=== PATIENT | female | born 2000 | race Caucasian/White ===

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

== ENCOUNTER 2019-02-28 11:40 | Emergency (ER) | payer OTHER ==
[~2019-02-28] VITALS: Ht 160 cm; Wt 90.7 kg
[2019-02-28 12:28] LABS: BILIRUBIN NEGATIVE (NEGATIVE); BLOOD 2+ (NEGATIVE); CLARITY SL CLOUDY (CLEAR); COLOR YELLOW (YELLOW); GLUCOSE NEGATIVE (NEGATIVE); KETONE NEGATIVE (NEGATIVE); LEUKO ESTERASE NEGATIVE (NEGATIVE); NITRITE NEGATIVE (NEGATIVE); SPECIFIC GRAVITY 1.015 (1.005-1.030); UROBILINOGEN 0.2 E.U./dl (0.2-1.0)
[2019-02-28 12:53] LABS: BACTERIA 2+; EPITHELIAL CELLS 15-20
[2019-06-03] MEDS ORDERED: VISTARIL25 MG PO (13:20)
[2019-06-03] MEDS ORDERED: PROTONIX40 MG PO (13:20)
[2019-06-03] MEDS ORDERED: CARAFATE1 G1 PO (13:20)
[2019-06-03] MEDS ORDERED: LEVAQUIN750 M1 PO (13:20)
[2019-06-03] MEDS ORDERED: FLAGYL500 MG PO (13:20)
[2019-06-03] MEDS ORDERED: ZOFRAN4 MG PO (13:20)
== END 2019-02-28 13:23 | disposition home or self-care (01) ==
LOC: ED 11:40
PROVIDERS: Emergency Medicine
DX: J06.9 Acute upper respiratory infection, unspecified (principal); R11.0 Nausea; R30.9 Painful micturition, unspecified; E66.9 Obesity, unspecified; F17.200 Nicotine dependence, unspecified, uncomplicated

== ENCOUNTER 2019-07-03 08:51 | Emergency (ER) | payer OTHER ==
[~2019-07-03] VITALS: Ht 162.5 cm; Wt 82.6 kg
[~2019-07-03 08:51] MED LIST changes: +CARAFATE1 G1 PO; +FLAGYL500 MG PO; +LEVAQUIN750 M1 PO; +VISTARIL25 MG PO
[2019-07-03 09:26] LABS: BASO # 0.1 10*3/uL (0.0-0.1); BASO % 0.3 % (0.0-1.0); EOS # 0.1 10*3/uL (0.0-0.4); EOS % 0.6 % (1.0-4.0); HEMATOCRIT 43.1 % (37.0-47.0); HEMOGLOBIN 14.6 g/dl (12.0-16.0); LYMPH # 1.9 10*3/uL (1.3-4.4); LYMPH % 11.4 % (27.0-41.0); MEAN CELL VOLUME 90.9 fl (81.0-99.0); MEAN CORPUSCULAR HGB 30.8 pg (27.0-31.0); MEAN CORPUSCULAR HGB CONC 33.9 g/dl (33.0-37.0); MEAN PLATELET VOLUME 11.6 fl (9.6-12.3); MONO # 0.6 10*3/uL (0.1-1.0); MONO % 3.5 % (3.0-9.0); NEUT # 13.8 10*3/uL (2.3-7.9); NEUT % 83.9 % (47.0-73.0); PLATELET COUNT AUTOMATED 299 10*3/uL (130-400); RED BLOOD COUNT 4.74 10*6/uL (4.10-5.10); RED CELL DISTRI WIDTH 12.1 % (0-14.5); WHITE BLOOD COUNT 16.5 10*3/uL (4.8-10.8)
[2019-07-03 09:32] LABS: BILIRUBIN NEGATIVE (NEGATIVE); BLOOD NEGATIVE (NEGATIVE); CLARITY CLOUDY (CLEAR); COLOR YELLOW (YELLOW); GLUCOSE NEGATIVE (NEGATIVE); KETONE 2+ (NEGATIVE); LEUKO ESTERASE TRACE (NEGATIVE); NITRITE NEGATIVE (NEGATIVE); PH 6.5 (5.0-9.0); UROBILINOGEN 0.2 E.U./dl (0.2-1.0)
[2019-07-03 09:40] LABS: ALBUMIN 3.9 gm/dl (3.1-4.5); ALKALINE PHOSPHATASE 60 U/L (45-117); BUN 14 mg/dl (7-24); CHLORIDE 110 mmol/L (98-107); CREATININE 0.69 mg/dL (0.55-1.02); LIPASE 109 U/L (73-393); POTASSIUM 3.5 mmol/L (3.5-5.1); SGOT/AST 7 IU/L (3-35); SGPT/ALT 18 U/L (12-78); SODIUM 140 mmol/L (136-145); TOTAL PROTEIN 7.3 gm/dL (6.4-8.2)
[2019-07-03 09:50] LABS: BACTERIA 2+; EPITHELIAL CELLS TNTC
[2019-07-03 10:03] LABS: URINE AMPHETAMINES < 1000 (1000ng/ml); URINE BARBITURATES < 200 (200ng/ml); URINE BENZODIAZEPINES < 200 (200ng/ml); URINE CANNABINOIDS (THC) > 50 (50ng/ml); URINE COCAINE < 300 (300ng/ml); URINE METHADONE < 300 (300ng/ml); URINE OPIATES < 300 (300ng/ml)
[2019-07-03 10:07] LABS: URINE PHENCYCLIDINE < 25 (25ng/ml)
[2019-07-03] MEDS ORDERED: ZOFRAN4 MG PO (11:01)
== END 2019-07-03 11:08 | disposition home or self-care (01) ==
LOC: ED 08:51
PROVIDERS: Emergency Medicine
DX: F12.10 Cannabis abuse, uncomplicated (principal); G43.A0 Cyclical vomiting, in migraine, not intractable; R10.84 Generalized abdominal pain; F17.200 Nicotine dependence, unspecified, uncomplicated; F17.210 Nicotine dependence, cigarettes, uncomplicated; Z79.899 Other long term (current) drug therapy

== ENCOUNTER → 2019-07-05 | Outpatient (CLI) | payer OTHER | END | disposition home or self-care (01) | LOC: NM 07:00 | DX: R10.11 Right upper quadrant pain (principal); R10.13 Epigastric pain; R11.0 Nausea ==

== ENCOUNTER 2019-07-11 08:37 | Emergency (ER) | payer OTHER ==
[~2019-07-11] VITALS: Ht 162.5 cm; Wt 83.9 kg
[2019-07-11 09:54] LABS: BILIRUBIN NEGATIVE (NEGATIVE); BLOOD NEGATIVE (NEGATIVE); CLARITY SL CLOUDY (CLEAR); COLOR YELLOW (YELLOW); GLUCOSE NEGATIVE (NEGATIVE); KETONE 1+ (NEGATIVE); LEUKO ESTERASE TRACE (NEGATIVE); NITRITE NEGATIVE (NEGATIVE); UROBILINOGEN 0.2 E.U./dl (0.2-1.0)
[2019-07-11 10:01] LABS: URINE AMPHETAMINES < 1000 (1000ng/ml); URINE BARBITURATES < 200 (200ng/ml); URINE BENZODIAZEPINES < 200 (200ng/ml); URINE CANNABINOIDS (THC) > 50 (50ng/ml); URINE COCAINE < 300 (300ng/ml); URINE METHADONE < 300 (300ng/ml); URINE OPIATES < 300 (300ng/ml)
[2019-07-11 10:10] LABS: BACTERIA 3+; EPITHELIAL CELLS 16-20
[2019-07-11 10:14] LABS: URINE PHENCYCLIDINE < 25 (25ng/ml)
[2019-07-11] MEDS ORDERED: ZOFRAN4 MG PO (11:56)
== END 2019-07-11 12:05 | disposition home or self-care (01) ==
LOC: ED 08:37
PROVIDERS: Emergency Medicine
DX: K29.70 Gastritis, unspecified, without bleeding (principal); R42 Dizziness and giddiness; R06.02 Shortness of breath; R61 Generalized hyperhidrosis; R05 Cough; F12.90 Cannabis use, unspecified, uncomplicated; F17.210 Nicotine dependence, cigarettes, uncomplicated

== ENCOUNTER 2020-03-04 10:05 | Inpatient (IN) | payer OTHER ==
[~2020-03-04] VITALS: Ht 152.4 cm; Wt 85.3 kg
[2020-03-04 10:25] VITALS: BP 115/68
[2020-03-04 11:06] LABS: BASO # 0.1 10*3/uL (0.0-0.1); BASO % 0.4 % (0.0-1.0); EOS % 0.2 % (1.0-4.0); HEMATOCRIT 42.5 % (37.0-47.0); LYMPH # 2.3 10*3/uL (1.3-4.4); LYMPH % 12.1 % (27.0-41.0); MEAN CELL VOLUME 90.4 fl (81.0-99.0); MEAN CORPUSCULAR HGB 31.7 pg (27.0-31.0); MEAN CORPUSCULAR HGB CONC 35.1 g/dl (33.0-37.0); MEAN PLATELET VOLUME 11.2 fl (9.6-12.3); MONO # 0.8 10*3/uL (0.1-1.0); MONO % 4.4 % (3.0-9.0); NEUT # 15.8 10*3/uL (2.3-7.9); NEUT % 82.4 % (47.0-73.0); PLATELET COUNT AUTOMATED 346 10*3/uL (130-400); RED CELL DISTRI WIDTH 11.9 % (0-14.5); WHITE BLOOD COUNT 19.1 10*3/uL (4.8-10.8)
[2020-03-04 11:22] LABS: ALBUMIN 4.2 gm/dl (3.1-4.5); ALKALINE PHOSPHATASE 64 U/L (45-117); BUN 8 mg/dl (7-24); CHLORIDE 112 mmol/L (98-107); CREATININE 0.73 mg/dL (0.55-1.02); LIPASE 73 U/L (73-393); POTASSIUM 3.7 mmol/L (3.5-5.1); SGOT/AST 13 IU/L (3-35); SGPT/ALT 17 U/L (12-78); SODIUM 140 mmol/L (136-145); TOTAL PROTEIN 7.4 gm/dL (6.4-8.2)
[2020-03-04 11:24] VITALS: BP 119/63
[2020-03-04 11:24] LABS: BETA-HCG, QUANT < 1.0 mIU/mL (1-3)
[2020-03-04 11:50] VITALS: BP 112/67
--- NOTE | 2020-03-04 11:52 | NUR ---
SLIGHT IMPROVEMENT IN NAUSEA AND DRY HEAVING AFTER PHENERGAN.
[2020-03-04 13:17] LABS: BILIRUBIN NEGATIVE (NEGATIVE); BLOOD NEGATIVE (NEGATIVE); CLARITY CLEAR (CLEAR); COLOR YELLOW (YELLOW); GLUCOSE NEGATIVE (NEGATIVE); KETONE 3+ (NEGATIVE); LEUKO ESTERASE NEGATIVE (NEGATIVE); NITRITE NEGATIVE (NEGATIVE); PH 8.5 (5.0-9.0); SPECIFIC GRAVITY 1.005 (1.005-1.030); UROBILINOGEN 0.2 E.U./dl (0.2-1.0)
[2020-03-04 13:19] LABS: BACTERIA 2+
--- NOTE | 2020-03-04 14:16 | NUR ---
PATIENT AMBUALTED WELL TO RESTROOM AT THIS TIME.
--- NOTE | 2020-03-04 15:00 | NUR ---
Time: 1500 A 19 year old FEMALE admitted to under services of FABIO JUAREZ DO. Pt. arrived via wheel chair from ER. Chief complaint: NAUSEA AND VOMITING. INITIAL ASSESSMENT COMPLETE. C/O OF NAUSEA, VOMITING, SLIGHT ABDOMINAL PAIN, AND STATED SHE WANTED TO HAVE SOMETHING TO DRINK SOMETHING. WHILE IN ROOM, NOTIFIED HER THAT SHE WAS ON A CLEAR LIQUID DIET. AIDE BROUGHT PT IN A BIG GLASS OF WATER AND PATIENT DRANK ALL THE WATER IN THE CUP AT ONCE. PT BEGAN STATING SHE WAS FEELING VERY NAUSEOUS. NO OTHER COMPLAINTS AT THIS TIME. ROOM ORIENTATION WAS GIVEN AT THIS TIME WELL. HOME MED REQ WAS COMPLETED. SUREKHA ESCOBEDO
[2020-03-04] MEDS ORDERED: CARAFATE1 G1 PO (15:11)
[2020-03-04 15:17] VITALS: BP 132/58
[2020-03-04 16:00] VITALS: BP 126/63
--- NOTE | 2020-03-04 16:57 | NUR ---
PRN ZOFRAN GIVEN TO PT FOR NAUSEA. PT THEN ASKED FOR A PITCHER OF WATER. EDUCATED THE PATIENT ON THE IMPORTANCE OF DRINKING FLUIDS SLOWLY TO HELP WITH NAUSEA AND TO NOT DRINK THEM TOO QUICKLY. WILL REASSESS EFFECTIVENESS OF MEDICATION.
--- NOTE | 2020-03-04 17:17 | NUR ---
PRN ZOFRAN WAS EFFECTIVE. PT IS CURRENTLY SLEEPING WITH NO SIGNS OF DISTRESS.
--- NOTE | 2020-03-04 19:30 | NUR ---
IN TO SEE PT AT THIS TIME. PT APPEARS TO BE ANXIOUS BUT DENIES ANY NEED FOR MEDICATION AT THIS TIME. PT ALSO DENIES ANY N/V. NO OTHER C/O VOICED. RESPS ARE EASY AND NONLABORED. BED IS LOW, CALL LIGHT WITHIN REACH. WILL CONTINUE TO MONITOR.
[2020-03-04 20:00] VITALS: BP 109/48
--- NOTE | 2020-03-04 20:09 | NUR ---
PT MEDICATED WITH PRN VISTARIL AND TYLENOL AT THIS TIME FOR C/O ANXIETY AND HEADACHE. WILL MONITOR FOR EFFECTIVENESS.
--- NOTE | 2020-03-04 20:54 | NUR ---
PT RESTING COMFORTABLY AT THIS TIME. NO S/S OF ANXIETY NOTED. PT ALSO STATES THAT HER HEADACHE HAS SUBSIDED. PRN TYLENOL AND VISTARIL EFFECTIVE.
--- NOTE | 2020-03-04 23:45 | NUR ---
PT MEDICATED WITH PRN ZOFRAN FOR C/O NAUSEA. WILL MONITOR FOR EFFECTIVENESS.
[2020-03-05] VITALS: BP 120/63
--- NOTE | 2020-03-05 00:32 | NUR ---
PT ASLEEP IN BED AT THIS TIME. NO S/S OF DISTRESS NOTED. PRN ZOFRAN EFFECTIVE
--- NOTE | 2020-03-05 05:43 | NUR ---
PT ADMINISTERED PRN ZOFRAN FOR C/O NAUSEA AND VOMITTING X1. WILL MONITOR FOR EFFECTIVENESS.
--- NOTE | 2020-03-05 06:25 | NUR ---
PT ASLEEP IN BED AT THIS TIME. NO S/S OF DISTRESS NOTED. PRN ZOFRAN EFFECTIVE.
--- NOTE | 2020-03-05 07:28 | NUR ---
PT MEDICATED WITH PRN VISTARIL. WILL MONITOR FOR EFFECTIVENESS.
[2020-03-05 07:49] LABS: BUN 9 mg/dl (7-24); CHLORIDE 111 mmol/L (98-107); CREATININE 0.61 mg/dL (0.55-1.02); POTASSIUM 3.4 mmol/L (3.5-5.1); SODIUM 140 mmol/L (136-145)
[2020-03-05 07:53] LABS: BASO % 0.3 % (0.0-1.0); HEMATOCRIT 38.3 % (37.0-47.0); LYMPH # 1.9 10*3/uL (1.3-4.4); LYMPH % 14.1 % (27.0-41.0); MEAN CELL VOLUME 92.5 fl (81.0-99.0); MEAN CORPUSCULAR HGB 31.2 pg (27.0-31.0); MEAN CORPUSCULAR HGB CONC 33.7 g/dl (33.0-37.0); MEAN PLATELET VOLUME 12.1 fl (9.6-12.3); MONO % 7.6 % (3.0-9.0); NEUT # 10.7 10*3/uL (2.3-7.9); NEUT % 77.6 % (47.0-73.0); PLATELET COUNT AUTOMATED 285 10*3/uL (130-400); RED BLOOD COUNT 4.14 10*6/uL (4.10-5.10); RED CELL DISTRI WIDTH 12.4 % (0-14.5); WHITE BLOOD COUNT 13.7 10*3/uL (4.8-10.8)
[2020-03-05 08:00] VITALS: BP 116/64
--- NOTE | 2020-03-05 08:00 | NUR ---
Certified Pharmacist Assistant in to talk to patient. Patient states lives at home with her boyfriend. There are 0 steps in the home. Physician: Dr. Julian Harley Pharmacy: [facility] Home health services: none Patient's level of ADLs: INDEPENDENT Patient has working utilities: yes DME: none Follow-up physician's appointment after d/c: will be made by the hospitalist nurse director upon discharge Does patient want to access PORTAL?: no Discharge plan discussed with patient. She lives at home with her boyfriend. She is independent in her ADLs and ambulation. Discussed home health care services and she denies any home needs at this time. When medically stable she will be discharged to home. She states her boyfriend will provide transportation on discharge. CANDIDA JAVED
[2020-03-05 08:01] LABS: CHOLESTEROL 128 mg/dL (<200); HDL CHOLESTEROL 48 mg/dl (40-60); LDL CHOLESTEROL 69 mg/dL (9-159); THYROID STIM HORMONE (HS) 0.405 uIU/ml (0.358-4.75); TRIGLYCERIDES 54 mg/dl (<150); VLDL CHOLESTEROL 11 mg/dL (6-40)
--- NOTE | 2020-03-05 09:41 | NUR ---
PT DENIES COMPLAINTS AT PRESENT TIME. PT STATES DOCTOR STATED SHE WILL BE DISCHARGED TODAY.
[2020-03-05] MEDS ORDERED: METRONIDAZOLE500 M1 PO (10:44)
[2020-03-05] MEDS ORDERED: CIPRO500 MG PO (10:44)
[2020-03-05] MEDS ORDERED: ZOFRAN4 MG PO (10:44)
[2020-03-05] MEDS ORDERED: GAVISCON ES TA1 EACH PO (10:44)
[2020-03-05] MEDS ORDERED: PANTOPRAZOLE SO40 MG PO (10:44)
--- NOTE | 2020-03-05 13:01 | NUR ---
Discharge instructions reviewed with patient. Patient receptive and verbalizes understanding. Follow-up care arranged. Written instructions given to patient. ISABELLA MALONE
[2020-03-08] MEDS ORDERED: PHENERGAN25 M3 PO (18:54)
[2020-03-08] MEDS ORDERED: TRAMADOL HCL50 MG PO (18:55)
[2020-03-09] MEDS ORDERED: ZOFRAN4 MG PO (17:56)
== END 2020-03-05 13:01 | disposition home or self-care (01) | DRG 872 ==
LOC: ED 10:05 → 4E 13:43 → EDHOLD 13:43 → 4E 14:27
PROVIDERS: Emergency Medicine; Family Medicine; Student in an Organized Health Care Education/Training Program; ADMIT Family Medicine
DX: A41.9 Sepsis, unspecified organism (principal); E87.2 Acidosis; A08.4 Viral intestinal infection, unspecified; F12.90 Cannabis use, unspecified, uncomplicated; R11.15 Cyclical vomiting syndrome unrelated to migraine; F17.210 Nicotine dependence, cigarettes, uncomplicated; R65.20 Severe sepsis without septic shock; Z82.49 Family history of ischemic heart disease and other diseases of the circulatory system; Z79.899 Other long term (current) drug therapy

== ENCOUNTER 2020-03-05 23:47 | Emergency (ER) | payer OTHER ==
[~2020-03-05] VITALS: Ht 167.6 cm; Wt 86.2 kg
[~2020-03-05 23:47] MED LIST changes: +CIPRO500 MG PO; +METRONIDAZOLE500 M1 PO; +PANTOPRAZOLE SO40 MG PO
[2020-03-06 02:53] LABS: BASO # 0.1 10*3/uL (0.0-0.1); BASO % 0.3 % (0.0-1.0); LYMPH # 1.3 10*3/uL (1.3-4.4); LYMPH % 8.5 % (27.0-41.0); MEAN CELL VOLUME 92.9 fl (81.0-99.0); MEAN CORPUSCULAR HGB 31.7 pg (27.0-31.0); MEAN CORPUSCULAR HGB CONC 34.1 g/dl (33.0-37.0); MEAN PLATELET VOLUME 11.3 fl (9.6-12.3); MONO # 0.7 10*3/uL (0.1-1.0); MONO % 4.4 % (3.0-9.0); NEUT # 12.8 10*3/uL (2.3-7.9); NEUT % 86.4 % (47.0-73.0); PLATELET COUNT AUTOMATED 276 10*3/uL (130-400); RED CELL DISTRI WIDTH 12.3 % (0-14.5); WHITE BLOOD COUNT 14.8 10*3/uL (4.8-10.8)
[2020-03-06 03:07] LABS: ALBUMIN 3.6 gm/dl (3.1-4.5); ALKALINE PHOSPHATASE 52 U/L (45-117); BUN 10 mg/dl (7-24); CHLORIDE 112 mmol/L (98-107); CREATININE 0.75 mg/dL (0.55-1.02); POTASSIUM 3.8 mmol/L (3.5-5.1); SGOT/AST 8 IU/L (3-35); SGPT/ALT 18 U/L (12-78); SODIUM 142 mmol/L (136-145); TOTAL PROTEIN 6.4 gm/dL (6.4-8.2)
[2020-03-08] MEDS ORDERED: PHENERGAN25 M3 PO (18:54)
[2020-03-08] MEDS ORDERED: TRAMADOL HCL50 MG PO (18:55)
[2020-03-09] MEDS ORDERED: ZOFRAN4 MG PO (17:56)
== END 2020-03-06 05:20 | disposition left against medical advice (07) ==
LOC: ED 23:47
PROVIDERS: Emergency Medicine
DX: K29.70 Gastritis, unspecified, without bleeding (principal); K92.0 Hematemesis; K21.9 Gastro-esophageal reflux disease without esophagitis; Z79.899 Other long term (current) drug therapy

== ENCOUNTER 2021-01-09 02:59 | Observation (INO) | payer BC ==
[~2021-01-09] VITALS: Ht 160 cm; Wt 82.3 kg
[2021-01-09] VITALS (9 sets, daily range): BP systolic 93–144; BP diastolic 38–94
[~2021-01-09 02:59] MED LIST changes: +PHENERGAN25 M3 PO; +TRAMADOL HCL50 MG PO
[2021-01-09 03:43] LABS: HEMATOCRIT 48.2 % (37.0-47.0); MEAN CELL VOLUME 90.8 fl (81.0-99.0); MEAN CORPUSCULAR HGB 30.3 pg (27.0-31.0); MEAN CORPUSCULAR HGB CONC 33.4 g/dl (33.0-37.0); MEAN PLATELET VOLUME 11.1 fl (9.6-12.3); PLATELET COUNT AUTOMATED 386 10*3/uL (130-400); RED BLOOD COUNT 5.31 10*6/uL (4.10-5.10); RED CELL DISTRI WIDTH 12.2 % (0-14.5); WHITE BLOOD COUNT 22.7 10*3/uL (4.8-10.8)
[2021-01-09 03:58] LABS: ALBUMIN 4.7 gm/dl (3.1-4.5); ALKALINE PHOSPHATASE 74 U/L (45-117); BUN 13 mg/dl (7-24); CHLORIDE 108 mmol/L (98-107); CREATININE 0.77 mg/dL (0.55-1.02); SGOT/AST 15 IU/L (3-35); SGPT/ALT 28 U/L (12-78); SODIUM 137 mmol/L (136-145); TOTAL CELLS COUNTED 100 #CELLS; TOTAL PROTEIN 8.5 gm/dL (6.4-8.2)
[2021-01-09 03:59] LABS: PLATELET SUFFICIENCY NORMAL (NORMAL)
[2021-01-09 06:54] LABS: BILIRUBIN 1+ (Negative); BLOOD Negative (Negative); CLARITY Cloudy (Clear); COLOR Dark Yellow (Yellow); GLUCOSE Negative (Negative); KETONE 4+ (Negative); NITRITE Negative (Negative); SPECIFIC GRAVITY >= 1.030 (1.001-1.030)
[2021-01-09 07:14] LABS: LEUKO ESTERASE Trace (Negative)
[2021-01-09 07:17] LABS: BACTERIA 3+; CALCIUM OXALATE CRYSTALS Trace; MUCOUS 2+
[2021-01-09] MEDS ORDERED: PROTONIX40 MG PO (16:20)
[2021-01-09] MEDS ORDERED: Carafate1 GM PO (16:20)
== END 2021-01-09 16:20 | disposition home or self-care (01) ==
LOC: ED 02:59 → EDHOLD 06:49 → 5E 07:20
PROVIDERS: Emergency Medicine; ADMIT Internal Medicine; ATTEND Internal Medicine
DX: K52.9 Noninfective gastroenteritis and colitis, unspecified (principal); R11.2 Nausea with vomiting, unspecified; E86.0 Dehydration; F41.9 Anxiety disorder, unspecified; R00.1 Bradycardia, unspecified; D72.829 Elevated white blood cell count, unspecified; E87.6 Hypokalemia; R82.4 Acetonuria; E80.6 Other disorders of bilirubin metabolism; R73.9 Hyperglycemia, unspecified; E87.8 Other disorders of electrolyte and fluid balance, not elsewhere classified; Z87.891 Personal history of nicotine dependence

== ENCOUNTER 2021-09-12 11:02 | Emergency (ER) | payer BC ==
[~2021-09-12] VITALS: Ht 160 cm; Wt 81.6 kg
[~2021-09-12 11:02] MED LIST changes: +Carafate1 GM PO
[2021-09-12 12:48] LABS: BASO # 0.1 10*3/uL (0.0-0.1); BASO % 0.4 % (0.0-1.0); EOS # 0.1 10*3/uL (0.0-0.4); EOS % 0.4 % (1.0-4.0); HEMATOCRIT 40.5 % (37.0-47.0); LYMPH # 1.2 10*3/uL (1.3-4.4); LYMPH % 7.3 % (27.0-41.0); MEAN CELL VOLUME 89.2 fl (81.0-99.0); MEAN CORPUSCULAR HGB 30.8 pg (27.0-31.0); MEAN CORPUSCULAR HGB CONC 34.6 g/dl (33.0-37.0); MONO # 0.6 10*3/uL (0.1-1.0); MONO % 3.5 % (3.0-9.0); NEUT # 14.4 10*3/uL (2.3-7.9); NEUT % 87.9 % (47.0-73.0); PLATELET COUNT AUTOMATED 342 10*3/uL (130-400); RED BLOOD COUNT 4.54 10*6/uL (4.10-5.10); RED CELL DISTRI WIDTH 11.9 % (0-14.5); WHITE BLOOD COUNT 16.3 10*3/uL (4.8-10.8)
[2021-09-12 13:10] LABS: ALBUMIN 4.1 gm/dl (3.1-4.5); ALKALINE PHOSPHATASE 64 U/L (45-117); BUN 12 mg/dl (7-24); CHLORIDE 113 mmol/L (98-107); CREATININE 0.74 mg/dL (0.55-1.02); LIPASE 72 U/L (73-393); POTASSIUM 3.4 mmol/L (3.5-5.1); SGOT/AST 12 IU/L (3-35); SGPT/ALT 23 U/L (12-78); SODIUM 139 mmol/L (136-145); TOTAL PROTEIN 7.6 gm/dL (6.4-8.2)
[2021-09-12 13:14] LABS: BILIRUBIN Negative (Negative); BLOOD 3+ (Negative); CLARITY Turbid (Clear); COLOR Dark Yellow (Yellow); GLUCOSE Negative (Negative); KETONE 4+ (Negative); LEUKO ESTERASE 1+ (Negative); NITRITE Negative (Negative); PH 7.5 (4.5-8.0); SPECIFIC GRAVITY >= 1.030 (1.001-1.030)
[2021-09-12 13:35] LABS: BACTERIA 4+; EPITHELIAL CELLS 21-30; MUCOUS 2+; RBC 31-40 rbc/hpf (0-2); YEAST TRACE
[2021-09-12] MEDS ORDERED: ZOFRAN4 MG PO (16:31)
[2021-09-12] MEDS ORDERED: SEPTDS PO (16:31)
== END 2021-09-12 16:45 | disposition home or self-care (01) ==
LOC: ED 11:02
PROVIDERS: Physician Assistant
DX: K52.9 Noninfective gastroenteritis and colitis, unspecified (principal); Z20.822 Contact with and (suspected) exposure to COVID-19; N39.0 Urinary tract infection, site not specified; Z87.891 Personal history of nicotine dependence

== ENCOUNTER 2021-09-15 23:54 | Emergency (ER) | payer BC ==
[~2021-09-15] VITALS: Ht 160 cm; Wt 81.6 kg
[2021-09-16 01:38] LABS: BASO # 0.1 10*3/uL (0.0-0.1); BASO % 0.5 % (0.0-1.0); EOS % 0.3 % (1.0-4.0); HEMATOCRIT 39.9 % (37.0-47.0); LYMPH # 2.5 10*3/uL (1.3-4.4); LYMPH % 15.9 % (27.0-41.0); MEAN CELL VOLUME 89.7 fl (81.0-99.0); MEAN CORPUSCULAR HGB 30.6 pg (27.0-31.0); MEAN CORPUSCULAR HGB CONC 34.1 g/dl (33.0-37.0); MEAN PLATELET VOLUME 11.2 fl (9.6-12.3); MONO % 6.7 % (3.0-9.0); NEUT # 11.8 10*3/uL (2.3-7.9); NEUT % 76.2 % (47.0-73.0); PLATELET COUNT AUTOMATED 372 10*3/uL (130-400); RED BLOOD COUNT 4.45 10*6/uL (4.10-5.10); RED CELL DISTRI WIDTH 11.9 % (0-14.5); WHITE BLOOD COUNT 15.4 10*3/uL (4.8-10.8)
[2021-09-16 01:48] LABS: BILIRUBIN Negative (Negative); BLOOD Trace-Lysed (Negative); CLARITY Turbid (Clear); COLOR Dark Yellow (Yellow); GLUCOSE Negative (Negative); KETONE 2+ (Negative); LEUKO ESTERASE Trace (Negative); NITRITE Negative (Negative); PH 6.5 (4.5-8.0); SPECIFIC GRAVITY >= 1.030 (1.001-1.030)
[2021-09-16 01:56] LABS: ALBUMIN 3.9 gm/dl (3.1-4.5); ALKALINE PHOSPHATASE 55 U/L (45-117); BUN 9 mg/dl (7-24); CHLORIDE 107 mmol/L (98-107); CREATININE 0.73 mg/dL (0.55-1.02); LIPASE 85 U/L (73-393); POTASSIUM 3.1 mmol/L (3.5-5.1); SGOT/AST 6 IU/L (3-35); SGPT/ALT 21 U/L (12-78); SODIUM 139 mmol/L (136-145); TOTAL PROTEIN 7.4 gm/dL (6.4-8.2)
[2021-09-16 01:57] LABS: URINE AMPHETAMINES < 1000 (1000ng/ml); URINE BARBITURATES < 200 (200ng/ml); URINE BENZODIAZEPINES < 200 (200ng/ml); URINE CANNABINOIDS (THC) > 50 (50ng/ml); URINE COCAINE < 300 (300ng/ml); URINE METHADONE < 300 (300ng/ml); URINE OPIATES < 300 (300ng/ml)
[2021-09-16 02:01] LABS: BACTERIA 1+; EPITHELIAL CELLS 16-20; MUCOUS 1+
[2021-09-16 02:02] LABS: URINE PHENCYCLIDINE < 25 (25ng/ml)
[2021-09-16] MEDS ORDERED: CARAFATE1 G1 PO (06:13)
[2021-09-16] MEDS ORDERED: PANTOPRAZOLE SO20 MG PO (06:13)
== END 2021-09-16 06:16 | disposition home or self-care (01) ==
LOC: ED 23:54
PROVIDERS: Emergency Medicine
DX: K29.00 Acute gastritis without bleeding (principal); Z87.891 Personal history of nicotine dependence

== ENCOUNTER 2021-10-11 15:18 | Emergency (ER) | payer BC ==
[~2021-10-11] VITALS: Ht 160 cm; Wt 79.4 kg
[~2021-10-11 15:18] MED LIST changes: +PANTOPRAZOLE SO20 MG PO
[2021-10-11] MEDS ORDERED: PROVENTIL HFA6.7 GM INH (19:06)
[2021-10-11] MEDS ORDERED: PREDNISONE20 M1 PO (19:06)
== END 2021-10-11 19:29 | disposition home or self-care (01) ==
LOC: ED 15:18
DX: J02.9 Acute pharyngitis, unspecified (principal); Z20.822 Contact with and (suspected) exposure to COVID-19; R05.9 Cough, unspecified; Z87.891 Personal history of nicotine dependence

== ENCOUNTER 2025-02-10 08:32 | Emergency (ER) | payer BC ==
[~2025-02-10] VITALS: Ht 160 cm; Wt 77.1 kg
[~2025-02-10 08:32] MED LIST changes: +PREDNISONE20 M1 PO; +PROVENTIL HFA6.7 GM INH
[2025-02-10] MEDS ORDERED: SODIUM CHLORIDE 0.9% 1,000 ML IV ONE (09:15)
[2025-02-10] MEDS ORDERED: Metoclopramide Hydrochloride 10 MG/2 ML VIAL IV ONE (09:15)
[2025-02-10] MEDS ORDERED: Ketorolac Tromethamine 15 MG/ML VIAL IV ONE (09:15)
[2025-02-10] MEDS ORDERED: FAMOTIDINE 50 ML IV ONE (09:15)
[2025-02-10] MEDS ORDERED: diphenhydrAMINE hydrochloride 50 MG/ML VIAL IV ONE (09:15)
[2025-02-10 09:40] LABS: BASO % 0.3 % (0.0-1.0); HEMATOCRIT 38.2 % (37.0-47.0); MEAN CELL VOLUME 92.3 fl (81.0-99.0); MEAN CORPUSCULAR HGB 30.9 pg (27.0-31.0); MEAN CORPUSCULAR HGB CONC 33.5 g/dl (33.0-37.0); MEAN PLATELET VOLUME 10.4 fl (9.6-12.3); MONO # 0.3 10*3/uL (0.1-1.0); MONO % 3.1 % (3.0-9.0); NEUT # 7.1 10*3/uL (2.3-7.9); NEUT % 82.5 % (47.0-73.0); PLATELET COUNT AUTOMATED 268 10*3/uL (130-400); RED BLOOD COUNT 4.14 10*6/uL (4.10-5.10); RED CELL DISTRI WIDTH 12.4 % (0-14.5); WHITE BLOOD COUNT 8.6 10*3/uL (4.8-10.8)
[2025-02-10 10:01] LABS: ALKALINE PHOSPHATASE 41 U/L (46-116); BUN 10 mg/dl (9-23); CHLORIDE 104 mmol/L (98-107); LIPASE 25 U/L (12-53); POTASSIUM 3.8 mmol/L (3.4-5.1); SGPT/ALT 15 U/L (5-49); TOTAL PROTEIN 6.2 gm/dL (6.0-8.0)
[2025-02-10] MEDS ORDERED: REGLAN10 M1 PO (10:55)
[2025-02-10 10:59] LABS: BILIRUBIN Negative (Negative); BLOOD Negative (Negative); CLARITY Clear (Clear); COLOR Yellow (Yellow); GLUCOSE Negative (Negative); KETONE 1+ (Negative); LEUKO ESTERASE Negative (Negative); NITRITE Negative (Negative); PH 6.5 (4.5-8.0); SPECIFIC GRAVITY 1.025 (1.001-1.030)
[2025-02-10 11:16] LABS: MUCOUS 1+
[2025-02-10 11:17] LABS: BACTERIA 3+
[2025-02-10 11:18] LABS: RBC 0-2 rbc/hpf (0-2); WBC 0-2 wbc/hpf (0-5)
== END 2025-02-10 11:35 | disposition home or self-care (01) ==
LOC: ED 08:32
PROVIDERS: Emergency Medicine
DX: R10.84 Generalized abdominal pain (principal); R11.2 Nausea with vomiting, unspecified; K21.9 Gastro-esophageal reflux disease without esophagitis; F41.9 Anxiety disorder, unspecified; Z79.899 Other long term (current) drug therapy